=== PATIENT | male | born 1950 | race Caucasian/White ===

== ENCOUNTER → 2019-11-07 11:50 | Outpatient (BNVA) | payer MEDICARE, OTHER, SELFPAY | PROVIDERS: Family Provider Family Medicine; PCP Family Medicine; Visit Provider Family Medicine | DX: E11.9 Type 2 diabetes mellitus without complications (principal); Z79.4 Long term (current) use of insulin; Z12.5 Encounter for screening for malignant neoplasm of prostate | CPT/HCPCS: 80053; 80061; 83036; 85025; G0103 ==

== ENCOUNTER → 2020-01-28 12:06 | Outpatient (BNVA) | payer MEDICARE, OTHER, SELFPAY | PROVIDERS: Family Provider Family Medicine; PCP Family Medicine; Visit Provider Internal Medicine | DX: N18.3 Chronic kidney disease, stage 3 (moderate) (principal) | CPT/HCPCS: 80069; 82044; 82310; 83970; 85025 ==

== ENCOUNTER → 2020-02-11 12:53 | Outpatient (BNVA) | payer MEDICARE, OTHER, SELFPAY | PROVIDERS: Family Provider Family Medicine; PCP Family Medicine; Visit Provider Nurse Practitioner Family | DX: E13.9 Other specified diabetes mellitus without complications (principal) | CPT/HCPCS: 80048; 83036 ==

== ENCOUNTER → 2020-06-29 08:22 | Outpatient (BNVA) | payer MEDICARE, OTHER, SELFPAY | PROVIDERS: Family Provider Family Medicine; PCP Family Medicine; Visit Provider Family Medicine | DX: N18.30 Chronic kidney disease, stage 3 unspecified (principal); E13.9 Other specified diabetes mellitus without complications; E78.5 Hyperlipidemia, unspecified | CPT/HCPCS: 80053; 80061; 82043; 83036; 85025 ==

== ENCOUNTER → 2020-12-30 10:25 | Outpatient (BNVA) | payer MEDICARE, OTHER, SELFPAY | PROVIDERS: Family Provider Family Medicine; PCP Family Medicine; Visit Provider Internal Medicine Nephrology | DX: I12.9 Hypertensive chronic kidney disease with stage 1 through stage 4 chronic kidney disease, or unspecified chronic kidney disease (principal); E78.2 Mixed hyperlipidemia; N18.30 Chronic kidney disease, stage 3 unspecified; E11.22 Type 2 diabetes mellitus with diabetic chronic kidney disease | CPT/HCPCS: 80053; 80061; 82043; 82310; 83970; 84100; 84443; 85025; G0103 ==

== ENCOUNTER → 2021-04-12 11:19 | Outpatient (BNVA) | payer MEDICARE, OTHER, SELFPAY | PROVIDERS: Family Provider Family Medicine; PCP Family Medicine; Visit Provider Family Medicine | DX: E11.65 Type 2 diabetes mellitus with hyperglycemia (principal); E78.2 Mixed hyperlipidemia; I12.9 Hypertensive chronic kidney disease with stage 1 through stage 4 chronic kidney disease, or unspecified chronic kidney disease; N18.30 Chronic kidney disease, stage 3 unspecified; E11.22 Type 2 diabetes mellitus with diabetic chronic kidney disease | CPT/HCPCS: 80053; 80061; 83036; 85025 ==

== ENCOUNTER → 2021-07-09 08:49 | Outpatient (BNVA) | payer MEDICARE, OTHER, SELFPAY | PROVIDERS: Family Provider Family Medicine; PCP Family Medicine; Visit Provider Family Medicine | DX: E11.65 Type 2 diabetes mellitus with hyperglycemia (principal); E78.2 Mixed hyperlipidemia; I25.10 Atherosclerotic heart disease of native coronary artery without angina pectoris; I12.9 Hypertensive chronic kidney disease with stage 1 through stage 4 chronic kidney disease, or unspecified chronic kidney disease; N18.30 Chronic kidney disease, stage 3 unspecified | CPT/HCPCS: 80053; 80061; 82043; 83036; 85025; G0103 ==

== ENCOUNTER → 2021-10-21 09:01 | Outpatient (BNVA) | payer MEDICARE, OTHER, SELFPAY | PROVIDERS: Family Provider Family Medicine; PCP Family Medicine; Visit Provider Family Medicine | DX: E11.65 Type 2 diabetes mellitus with hyperglycemia (principal); I10 Essential (primary) hypertension; E78.5 Hyperlipidemia, unspecified | CPT/HCPCS: 80053; 80061; 83036; 84443; 85025 ==

== ENCOUNTER → 2022-01-12 13:44 | Outpatient (BNVA) | payer MEDICARE, OTHER, SELFPAY | PROVIDERS: Family Provider Family Medicine; PCP Family Medicine; Visit Provider Internal Medicine | DX: I10 Essential (primary) hypertension (principal); E78.2 Mixed hyperlipidemia; E13.9 Other specified diabetes mellitus without complications; G47.33 Obstructive sleep apnea (adult) (pediatric); I25.10 Atherosclerotic heart disease of native coronary artery without angina pectoris; Z87.891 Personal history of nicotine dependence; Z79.82 Long term (current) use of aspirin; Z79.4 Long term (current) use of insulin | CPT/HCPCS: 99213 ==

== ENCOUNTER → 2022-01-21 09:19 | Outpatient (BNVA) | payer MEDICARE, OTHER, SELFPAY | PROVIDERS: Family Provider Family Medicine; PCP Family Medicine; Visit Provider Family Medicine | DX: E11.65 Type 2 diabetes mellitus with hyperglycemia (principal); I10 Essential (primary) hypertension; E78.5 Hyperlipidemia, unspecified | CPT/HCPCS: 80053; 80061; 83036; 85025 ==

== ENCOUNTER → 2022-04-29 12:21 | Outpatient (BNVA) | payer MEDICARE, OTHER, SELFPAY | PROVIDERS: Family Provider Family Medicine; PCP Family Medicine; Visit Provider Family Medicine | DX: E13.9 Other specified diabetes mellitus without complications (principal); E78.5 Hyperlipidemia, unspecified | CPT/HCPCS: 80053; 80061; 82043; 83036; 85025 ==

== ENCOUNTER → 2022-07-13 14:42 | Outpatient (BNVA) | payer MEDICARE, OTHER, SELFPAY | PROVIDERS: Family Provider Family Medicine; PCP Family Medicine; Visit Provider Internal Medicine | DX: I12.9 Hypertensive chronic kidney disease with stage 1 through stage 4 chronic kidney disease, or unspecified chronic kidney disease (principal); E13.22 Other specified diabetes mellitus with diabetic chronic kidney disease; N18.30 Chronic kidney disease, stage 3 unspecified; Z87.891 Personal history of nicotine dependence; Z79.4 Long term (current) use of insulin; E78.2 Mixed hyperlipidemia; G47.33 Obstructive sleep apnea (adult) (pediatric); I25.10 Atherosclerotic heart disease of native coronary artery without angina pectoris; R06.02 Shortness of breath | CPT/HCPCS: 99213; 99214 ==

== ENCOUNTER → 2022-07-29 09:29 | Outpatient (BNVA) | payer MEDICARE, OTHER, SELFPAY | PROVIDERS: Family Provider Family Medicine; PCP Family Medicine; Visit Provider Family Medicine | DX: I10 Essential (primary) hypertension (principal); E11.65 Type 2 diabetes mellitus with hyperglycemia; E78.5 Hyperlipidemia, unspecified; Z12.5 Encounter for screening for malignant neoplasm of prostate | CPT/HCPCS: 80053; 80061; 83036; 85025; G0103 ==

== ENCOUNTER 2022-08-30 13:26 | Outpatient (CLI) | payer MEDICARE, OTHER, SELFPAY ==
--- NOTE | 2022-08-30 13:45 | USCV_ITS ---
Binu Mccoy Age: 71 Gender: M : 1950 Exam Date: 08/30/2022 13:53 Ordering Phys: Davide Grullon M.D ([email or web address]) Technologist: Jean Mckeon [place]am Location[place] [facility] [place] Indication: SOB BP: 136 / 72 HR: 61 Rhythm: Sinus Technical Quality: Adequate MEASUREMENTS (Male / Female) Normal Values 2D ECHO LV Diastolic Diameter PLAX 3.7 cm 4.2 - 5.9 / 3.9 - 5.3 cm LV Systolic Diameter PLAX 2.3 cm IVS Diastolic Thickness 1.1 cm 0.6 - 1.0 / 0.6 - 0.9 cm IVS Systolic Thickness 1.1 cm LVPW Diastolic Thickness 1.1 cm 0.6 - 1.0 / 0.6 - 0.9 cm LVPW Systolic Thickness 1.9 cm LVOT Diameter 2.0 cm LV Ejection Fraction 2D Teich 69.3 % LV Ejection Fraction MOD 2C 71.6 % LV Ejection Fraction 2C AL 73.7 % LA Diameter 3.4 cm LA Width 4.2 cm LA Height 5.0 cm RA Width 4.8 cm RA Height 4.6 cm Aorta at Sinotubular Diameter 2.5 cm IVC Diameter 1.9 cm M-MODE Aortic Annulus Diameter 2.9 cm LA Ao Ratio MM 1.2 MV E Point Septal Separation 0.6 cm DOPPLER AV Peak Velocity 172.0 cm/s LVOT Peak Velocity 103.0 cm/s AV Area Cont Eq vti 1.6 cm squared AV Area Cont Eq pk 1.9 cm squared MV Peak Velocity 95.0 cm/s MV Area PHT 3.3 cm squared Mitral E to A Ratio 0.6 MV E' Velocity 26.5 cm/s Mitral E to MV E' Ratio 7.3 Mitral E to LV E' Lateral Ratio 7.8 Mitral E to LV E' Septal Ratio 6.9 TR Peak Velocity 229.0 cm/s TR Peak Gradient 21.0 mmHg TR Mean Velocity 173.9 cm/s TR Mean Gradient 12.8 mmHg TR Velocity Time Integral 53.4 cm Right Atrial Pressure 3.0 mmHg Pulmonary Artery Systolic Pressu 24.0 mmHg PV Peak Velocity 136.3 cm/s RV Acceleration Time 0.1 s RV Ejection Time 0.3 s RV AcT/ET 0.3 FINDINGS Left Ventricle Left ventricle is normal in size. LV systolic function is normal with EF of 55 to 60%. No regional wall motion abnormalities are seen. Grade 1 diastolic dysfunction Right Ventricle Normal in size and function Right Atrium Normal in size Left Atrium Normal in size Mitral Valve Thickened mitral valve. Mild mitral regurgitation. Aortic Valve Aortic valve is thickened. Trace aortic regurgitation. Tricuspid Valve Mild tricuspid regurgitation. Pulmonary artery systolic pressure is normal Pulmonic Valve Not well-visualized. Mild pulmonic regurgitation. Pericardium Normal Aorta Normal in size IVC Appears to be normal CONCLUSIONS LV systolic function is nromal with EF of 55-60% Grade 1 diastolic dysfunction Mild mitral regurgitation Trace aortic regurgitation Mild tricuspid regurgitation Mild pulmonic regugitation No comparison studies are available Davide Grullon MD (Electronically Signed) Final Date: 13 September 2022 17:32 S
== END 2022-08-30 13:27 | disposition home or self-care (01) ==
LOC: RAD 13:26
PROVIDERS: PCP Family Medicine; Visit Provider Internal Medicine
DX: I08.3 Combined rheumatic disorders of mitral, aortic and tricuspid valves (principal); R06.02 Shortness of breath
CPT/HCPCS: 93306

== ENCOUNTER → 2022-10-28 10:10 | Outpatient (BNVA) | payer MEDICARE, OTHER, SELFPAY | PROVIDERS: PCP Family Medicine; Visit Provider Family Medicine | DX: E13.9 Other specified diabetes mellitus without complications (principal); E78.5 Hyperlipidemia, unspecified; I10 Essential (primary) hypertension; I25.10 Atherosclerotic heart disease of native coronary artery without angina pectoris; E11.65 Type 2 diabetes mellitus with hyperglycemia | CPT/HCPCS: 80053; 80061; 83036; 83721; 84443; 85025 ==

== ENCOUNTER 2022-12-14 23:18 | Inpatient (IN) | payer MEDICARE, OTHER, SELFPAY ==
--- NOTE | 2022-12-14 23:21 | XRR_ITS ---
PROCEDURE INFORMATION: Exam: XR Chest Exam date and time: 12/14/2022 11:53 PM Age: 72 years old Clinical indication: Pain; Right-sided; Additional info: Cp TECHNIQUE: Imaging protocol: Radiologic exam of the chest. Views: 1 view. COMPARISON: No relevant prior studies available. FINDINGS: Lungs: Low lung volumes. Lung base atelectasis or scarring. No consolidation. Pleural spaces: Unremarkable. No pleural effusion. No pneumothorax. Heart/Mediastinum: Unremarkable. No cardiomegaly. Vasculature: Advanced diffuse vascular calcification noted. Bones/joints: Unremarkable. XR/XR chest 1V portable [id number] IMPRESSION: No acute finding. Chronic findings above.
--- NOTE | 2022-12-14 23:21 | ECG_ITS ---
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 Measurements Intervals [place] Rate: 62 P: 39 NH: 219 QRS: -9 QRSD: 81 T: 48 QT: 358 QTc: 365 Interpretive Statements SINUS RHYTHM WITH FIRST DEGREE AV BLOCK INDETERMINATE AXIS ANTERIOR MYOCARDIAL INFARCTION , OF INDETERMINATE AGE [40+ ms Q WAVE AND/OR ST/T ABNORMALITY IN V3/V4] INFERIOR MYOCARDIAL INFARCTION , PROBABLY OLD [40+ ms Q WAVE AND/OR ST/T ABNORMALITY IN II/aVF] No previous ECG available for comparison Electronically Signed On 12-15-2022 7:40:30 CDT by Davide Grullon M.D. [id number]
[2022-12-14 23:25] VITALS: BP 143/79; PULSE 67; RESP 18; TEMP 36.7; O2SAT 97
[2022-12-14 23:39] VITALS: BP 143/79; PULSE 62; RESP 27; O2SAT 95
--- NOTE | 2022-12-14 23:46 | W.ED.CHESTPA ---
HPI - Chest Pain General: Chief Complaint: Chest Pain Stated Complaint: cp,fever Time Seen by Provider: 12/14/22 23:22 Source: patient Mode of arrival: ambulatory Limitations: no limitations History of Present Illness: 72-year-old male states been having right-sided chest pain since 1 that is worsening states pain is very sharp in nature he states it is much worse with deep breaths and and with palpation. He rates his pain a 7 out of 10 currently he denies any vomiting or diarrhea he has had some shortness of breath. Associated symptoms: Deny abdominal pain, dyspnea, fever(s), nausea or vomiting Review of Systems Const: Denies: fever(s), chills, body aches or change in appetite Eyes: Denies: blurry vision or eye discomfort ENMT: Denies: throat pain or dental pain Card: Reports: chest pain Resp: Denies: dyspnea GI: Denies: abdominal pain, nausea, vomiting or diarrhea : Denies: dysuria Musc: Denies: neck pain or back pain Skin/Breast: Denies: rash Neuro: Denies: headache(s) Psych: Denies: depression Yoseph/Lymph: Denies: easy bruising All/Imm: Denies: urticaria PFSH ED PFSH: Medical History Acquired sensorineural hearing loss Arteriosclerotic heart disease (ASHD) 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 Chronic kidney disease, stage 3 (moderate) follows with nephrology 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, managed as type 1 Diabetes mellitus type II, uncontrolled Enrolled in chronic care management Gastric polyp Hemangioma of liver Hyperlipidemia, unspecified IBS (irritable bowel syndrome) Inflammatory arthritis Lichen sclerosus Neoplasm of uncertain behavior of skin Neuropathy Obstructive sleep apnea Bi-Pap 06/29 Osteoarthritis of both knees Rosacea Seborrheic dermatitis of scalp Solitary pulmonary nodule Surgical History Hx of angioplasty stents 1996 stents 2010 Hx of circumcision (~2006) Hx of vasectomy Family History Father , age 49; [place] CAD (coronary artery disease) Mother , age 73 Diabetes Aneurysm brain Brother Diabetes CAD (coronary artery disease) Sister Diabetes CAD (coronary artery disease) Social History Smoking and tobacco status: former smoker Second hand smoke exposure: No Alcohol intake: never Caregiver/support person: Yes (spouse) Lives independently: Yes Household members: spouse Housing: House Marital status: Number of children: 1 service: No Current occupational status: retired Current occupation: [employer] Current gender identity: Male Grecia/Orthodox: [employer] Special grecia needs: No Agree to transfusion: Yes Physical Exam Const: COMMON NORMALS: no acute distress, patient oriented x3 and healthy appearing HENMT: COMMON NORMALS: normocephalic and atraumatic HEAD & SCALP: normocephalic and atraumatic Eye: COMMON NORMALS: Equal, round and reactive pupils present and EOMs intact bilaterally PUPIL: Yes Equal, round and reactive pupils present Neck/C-Spine: COMMON NORMALS: full ROM and supple Chest: COMMONS NORMALS: normal inspection of the chest OTHER: point tender over right chest reproduces pain Resp: COMMON NORMALS: normal respiratory effort, No retractions, No use of accessory muscles and clear to auscultation bilaterally AUSCULTATION: clear to auscultation bilaterally Cardio: COMMON NORMALS: regular rate, regular rhythm and No murmurs present (Cardio) RATE: regular rate RHYTHM: regular rhythm GI: COMMON NORMALS: Normal to inspection, nondistended, normoactive bowel sounds present, Soft to palpation, non-tender and no masses PALPATION: Yes Soft to palpation Extremity: COMMON NORMALS: normal to inspection and full ROM Neuro: COMMON NORMALS: patient oriented x3, moves all extremities and no focal motor deficits Psych: COMMON NORMALS: mental status grossly normal, Normal thought process present and cooperative THOUGHT PROCESS: Normal thought process present Skin: COMMON NORMALS: no rashes or lesions noted and no wounds GENERAL SKIN EXAM: no rashes or lesions noted Course Vital Signs: Vital signs: Vital Signs Temperature 98.0 F 12/14/22 23:25 Pulse Rate 62 12/15/22 02:00 Respiratory Rate 29 H 12/15/22 02:00 Blood Pressure 157/77 12/15/22 02:00 Pulse Oximetry 94 12/15/22 02:00 Oxygen Delivery Me thod 12/14/22 23:25 MDM - Chest Pain Medical Decision Making Patient presents here with chest pain likely caused by pulmonary embolism he has no signs of heart strain his Trope is normal he still continues to have some pains here mainly right sided spoke to hospitalist will admit for the PE. Lab Data 12/14/22 23:48 12/14/22 23:48 Radiology Impressions Chest X-Ray 12/15/22 00:00 IMPRESSION: No acute finding. Chronic findings above. Chest CTA 12/15/22 00:44 IMPRESSION: 1. At least mild burden fznjh-cbhdjig-karh-left lower lobe PE. No CT evidence of RV strain. 2. Mild areas of bilateral mid to lower lung atelectasis or scarring. No consolidation noted. Lung volumes are quite low. 3. Other chronic findings above. Likely reactive bilateral hilar and mediastinal nodes. These, and the lung opacities, may be reassessed in 1 year. 4. Call to provider has been initiated. ADDENDUM: 12/15/22 0225 THIS REPORT CONTAINS FINDINGS THAT MAY BE CRITICAL TO PATIENT CARE. The findings were verbally communicated via telephone conference at 2:23 AM CDT on 12/15/2022 with NANNETTE EVANS. The findings were acknowledged and understood. Laboratory Results WBC 7.5 10^3/uL (4.0-10.0) 12/14/22 23:48 RBC 5.39 10^6/uL (4.1-5.3) H 12/14/22 23:48 Hgb 15.5 g/dL (11.7-16.6) 12/14/22 23:48 Hct 47.6 % (42.0-52.0) 12/14/22 23:48 MCV 88.3 fl (80-94) 12/14/22 23:48 MCH 28.8 pg (28.0-34.0) 12/14/22 23:48 MCHC 32.6 g/dL (30.0-36.0) 12/14/22 23:48 RDW 14.2 % (12.1-15.1) 12/14/22 23:48 Plt Count 177 10^3/cmm (130-400) 12/14/22 23:48 MPV 10.3 fL (7.4-10.4) 12/14/22 23:48 Neut % (Auto) 72.1 % 12/14/22 23:48 Lymph % (Auto) 13.9 % 12/14/22 23:48 Miner % (Auto) 11.2 % 12/14/22 23:48 Eos % (Auto) 1.9 % 12/14/22 23:48 Baso % (Auto) 0.5 % 12/14/22 23:48 Neut # (Auto) 5.43 10^3/uL (1.8-7.7) 12/14/22 23:48 Lymph # (Auto) 1.1 10^3/uL (0.8-4.8) 12/14/22 23:48 Miner # (Auto) 0.8 10^3/uL (0.2-0.9) 12/14/22 23:48 Eos # (Auto) 0.1 10^3/uL (0.0-0.8) 12/14/22 23:48 Baso # (Auto) 0.0 10^3/uL (0.0-0.1) 12/14/22 23:48 Nucleated RBC % (auto) 0 % 12/14/22 23:48 Nucleated RBCs # 0.0 /100WBC 12/14/22 23:48 PT 12.70 SECONDS (12.1-14.9) 12/14/22 23:48 INR 0.93 (0.8-1.2) 12/14/22 23:48 D-Dimer 2.00 ug/mIFEU (0-0.59) H 12/14/22 23:48 Sodium 144 mmol/L (136-145) 12/14/22 23:48 Potassium 4.1 mmol/L (3.5-5.1) 12/14/22 23:48 Chloride 107 mmol/L (98-107) 12/14/22 23:48 Carbon Dioxide 23 mmol/L (22-29) 12/14/22 23:48 Anion Gap 18.1 (5-19) 12/14/22 23:48 BUN 27 mg/dL (8-23) H 12/14/22 23:48 Creatinine 1.6 mg/dL (0.7-1.2) H 12/14/22 23:48 GFR Calculation Not Reportable 12/14/22 23:48 Glucose 128 mg/dL (65-115) H 12/14/22 23:48 Calculated Osmolality 305 mOsm/kg (285-295) H 12/14/22 23:48 Calcium 9.6 mg/dL (8.5-10.5) 12/14/22 23:48 Total Bilirubin 0.5 mg/dL (0.15-1.2) 12/14/22 23:48 AST 21 U/L (0-40) 12/14/22 23:48 ALT 32 U/L (0-41) 12/14/22 23:48 Alkaline Phosphatase 64 U/L (40-130) 12/14/22 23:48 Troponin T Baseline 22 ng/L (0-15) H 12/14/22 23:48 Troponin T 120 Minute 17.95 ng/L (0-15) H 12/15/22 01:21 Delta Troponin T -4.05 ABS# (0-10) L 12/15/22 01:21 Total Protein 7.9 g/dL (6.6-8.7) 12/14/22 23:48 Albumin 4.5 g/dL (3.5-5.2) 12/14/22 23:48 Globulin 3.4 g/dL (1.3-4.6) 12/14/22 23:48 Lipase 33 U/L (13-60) 12/14/22 23:48 EKG Data EKG 1: I personally reviewed and interpreted this EKG as follows: EKG interpretation date: 12/14/22 EKG interpretation time: 23:35 Interpretation: nsr hr [address] elevation qrs 94 qtc 391 EKG 2: I personally reviewed and interpreted this EKG as follows: EKG interpretation date: 12/15/22 EKG interpretation time: 01:20 Interpretation: sinu buffy hr [address] or t wave abnormalties qrs 90 qtc 389 Discharge Plan Discharge Patient Disposition: Admitted As Inpatient Admit Provider: Raymond Knox Clinical Impression: Pulmonary embolism Condition: Stable Coding Level of Care Code ED Snow Remover for Oli Ernst
[2022-12-14] MEDS: ondansetron 2 mg/ML SDV 2 mL 4 MG IVP (23:50)
[2022-12-14 23:51] VITALS: RESP 20
[2022-12-14] MEDS: morphine 4 mg/mL SDV 1 mL IVP (23:51)
[2022-12-15] VITALS (15 sets, daily range): BP systolic 100–157; BP diastolic 62–77; PULSE 55–116; RESP 13–29; TEMP 36.6–36.9; O2SAT 90–95; BMI 28.3
--- NOTE | 2022-12-15 | XRR_ITS ---
PROCEDURE INFORMATION: Exam: XR Chest Exam date and time: 12/15/2022 12:29 AM Age: 72 years old Clinical indication: Chest pressure; Prior surgery; Surgery type: Coronary stent; Patient HX: C/O chest pain. Fever. ; Additional info: Repeat due to angulation TECHNIQUE: Imaging protocol: Radiologic exam of the chest. Views: 1 view. COMPARISON: CR (CHEST, ) 12/14/2022 11:53 PM FINDINGS: Lungs: Low lung volumes, but this is mildly improved. Lung base atelectasis or scarring. No consolidation. Pleural spaces: Unremarkable. No pleural effusion. No pneumothorax. Heart/Mediastinum: Unremarkable. No cardiomegaly. Vasculature: Advanced diffuse vascular calcification noted. Bones/joints: Unremarkable. XR/XR chest 1V portable [id number] IMPRESSION: No acute finding. Chronic findings above.
[2022-12-15 00:02] LABS: Basophils % 0.5 %; Eosinophils # 0.1 10^3/uL (0.0-0.8); Eosinophils % 1.9 %; Hematocrit 47.6 % (42.0-52.0); Hemoglobin 15.5 g/dL (11.7-16.6); Lymphocytes # 1.1 10^3/uL (0.8-4.8); Lymphocytes % 13.9 %; Mean Corpuscular HGB Conc 32.6 g/dL (30.0-36.0); Mean Corpuscular Hemoglobin 28.8 pg (28.0-34.0); Mean Corpuscular Volume 88.3 fl (80-94); Mean Platelet Volume 10.3 fL (7.4-10.4); Monocytes # 0.8 10^3/uL (0.2-0.9); Monocytes % 11.2 %; Neutrophils # 5.43 10^3/uL (1.8-7.7); Neutrophils % 72.1 %; Nucleated Red Blood Cells % 0 %; Platelet Count 177 10^3/cmm (130-400); Red Blood Count 5.39 10^6/uL (4.1-5.3); Red Cell Distribution Width 14.2 % (12.1-15.1); White Blood Count 7.5 10^3/uL (4.0-10.0)
[2022-12-15 00:21] LABS: INR 0.93 (0.8-1.2)
[2022-12-15 00:27] LABS: Troponin(5th) Baseline 22 ng/L (0-15)
[2022-12-15 00:28] LABS: Alanine Aminotransferase 32 U/L (0-41); Albumin Level 4.5 g/dL (3.5-5.2); Alkaline Phosphatase 64 U/L (40-130); Anion Gap 18.1 (5-19); Aspartate Amino Transferase 21 U/L (0-40); Blood Urea Nitrogen 27 mg/dL (8-23); Calcium 9.6 mg/dL (8.5-10.5); Carbon Dioxide 23 mmol/L (22-29); Chloride 107 mmol/L (98-107); Globulin 3.4 g/dL (1.3-4.6); Glucose 128 mg/dL (65-115); Lipase 33 U/L (13-60); Osmolality Calculated 305 mOsm/kg (285-295); Potassium 4.1 mmol/L (3.5-5.1); Sodium 144 mmol/L (136-145); Total Bilirubin 0.5 mg/dL (0.15-1.2); Total Protein 7.9 g/dL (6.6-8.7)
--- NOTE | 2022-12-15 00:44 | CTR_ITS ---
PROCEDURE INFORMATION: Exam: CTA Chest With Contrast Exam date and time: 12/15/2022 1:48 AM Age: 72 years old Clinical indication: Pain and abnormal findings; Abnormal diagnostic tests; Elevated d-dimer; Right-sided; Prior surgery; Surgery type: Coronary stent; Patient HX: RT chest wall pain with elevated d dimer. ; Additional info: Cp TECHNIQUE: Imaging protocol: Computed tomographic angiography of the chest with contrast. 3D rendering (Not supervised by radiologist): MIP and/or 3D reconstructed images were created by the technologist. Radiation optimization: All CT scans at this facility use at least one of these dose optimization techniques: automated exposure control; mA and/or kV adjustment per patient size (includes targeted exams where dose is matched to clinical indication); or iterative reconstruction. Contrast material: OMNI 350; Contrast volume: 65 ml; Contrast route: INTRAVENOUS (IV); REPORTING DATA: Count of CT and Cardiac NM exams in prior 12 months: This patient has received 0 known CTs and 0 known cardiac nuclear medicine studies in the 12 months prior to the current study. COMPARISON: CR (CHEST, ) 12/15/2022 12:29 AM RADIATION DOSE METRICS: Total DLP (mGy-cm): 371.61 FINDINGS: Pulmonary arteries: Mild burden RML and RLL lobar and segmental PE, generally nonocclusive. Minimal LLL subsegmental PE. Aorta: Unremarkable. No aortic aneurysm. No aortic dissection. Lungs: Lung volumes are low. A few minute calcified lung nodules are seen incidentally. Kvbd-zg-llgpwjbx areas of bilateral mid to lower lung atelectasis or scarring. No consolidation. Pleural spaces: No pneumothorax. No pleural effusion noted. Heart: The heart is mildly enlarged. No pericardial effusion is noted. Heart RV/LV ratio: The RV/LV ratio is 0.75. Lymph nodes: A few likely reactive bilateral hilar and mediastinal nodes are visualized. No bulky or necrotic lymphadenopathy. Diaphragm: Tiny hiatal hernia. Liver: Partially assessed steatotic liver. Bones/joints: Kvxs-ik-shyqnfnm spine DJD. Soft tissues: Unremarkable. Other findings: Advanced diffuse vascular calcification noted. CT/CT angio chest PE protcl [id number] IMPRESSION: 1. At least mild burden hgvqr-hiwirlv-ianc-left lower lobe PE. No CT evidence of RV strain. 2. Mild areas of bilateral mid to lower lung atelectasis or scarring. No consolidation noted. Lung volumes are quite low. 3. Other chronic findings above. Likely reactive bilateral hilar and mediastinal nodes. These, and the lung opacities, may be reassessed in 1 year. 4. Call to provider has been initiated.
--- NOTE | 2022-12-15 01:20 | ECG_ITS ---
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 Measurements Intervals [place] Rate: 59 P: 57 NM: 206 QRS: 2 QRSD: 90 T: 68 QT: 390 QTc: 388 Interpretive Statements SINUS BRADYCARDIA INDETERMINATE AXIS INFERIOR MYOCARDIAL INFARCTION , OF INDETERMINATE AGE [40+ ms Q WAVE AND/OR ST/T ABNORMALITY IN II/aVF] ANTEROSEPTAL MYOCARDIAL INFARCTION , OF INDETERMINATE AGE [40+ ms Q WAVE IN V1-V4] Compared to ECG 12/14/2022 23:29:55 Sinus rhythm no longer present First degree AV block no longer present Myocardial infarct finding still present Electronically Signed On 12-15-2022 22:56:03 CDT by Dorita Purcell M.D. [id number]
[2022-12-15] MEDS: HYDROmorphone 1 mg/mL INJ 1 mL 0.5 MG IVP ×3 (01:23→22:41)
[2022-12-15 01:49] LABS: Troponin 5 2HR 17.95 ng/L (0-15)
[2022-12-15 01:59] LABS: Troponin 5 2HR Delta -4.05 ABS# (0-10)
[2022-12-15] MEDS: iohexol 350 mg/mL 500 mL Btl (per mL) IV (02:02)
[2022-12-15] MEDS: enoxaparin 100 mg/mL Syringe 90 MG SUBCUT ×2 (02:33→17:13)
[2022-12-15] MEDS: ketorolac 30 mg/mL INJ 15 MG IVP (02:33)
--- NOTE | 2022-12-15 04:16 | USCV_ITS ---
Binu Mccoy Age: 72 Gender: M : 1950 Exam Date: 12/15/2022 05:44 Ordering Phys: Raymond Knox MD Technologist: HOMERO Exam Location: [facility] [place] Indication: PE, ASSESS FOR RV STRAIN BP: 119 / 68 HR: 56 Rhythm: Sinus Technical Quality: Adequate MEASUREMENTS (Male / Female) Normal Values 2D ECHO LVOT Diameter 2.0 cm LV Ejection Fraction MOD 2C 61.0 % LV Ejection Fraction 2C AL 60.0 % LA Diameter 3.2 cm LA Width 3.2 cm LA Height 5.2 cm RA Width 3.9 cm RA Height 4.8 cm Aorta at Sinotubular Diameter 2.4 cm IVC Diameter 2.1 cm M-MODE Aortic Annulus Diameter 3.0 cm LA Ao Ratio MM 1.0 MV E Point Septal Separation 0.4 cm DOPPLER Right Atrial Pressure 3.0 mmHg FINDINGS Left Ventricle Normal left ventricular size and systolic function, EF 63 %. No regional wall motion abnormalities. Right Ventricle The right ventricle is normal in size and function. Right Atrium The right atrium is normal in size. Left Atrium The left atrium is normal in size. Mitral Valve No gross abnormalities noted . Aortic Valve Thickened aortic valve. Tricuspid Valve No gross abnormalities noted Pulmonic Valve No gross abnormalities noted look triaditis ACS to confirm lisinopril pressure okay Pericardium No pericardial effusion. Aorta Normal aortic annulus size. IVC Normal inferior vena cava. CONCLUSIONS Normal left ventricular size and systolic function, EF 63 %. No regional wall motion abnormalities. Thickened aortic valve. Normal chamber sizes There is no pericardial effusion. There are no intracardiac masses. Compared to the study from 08/30/2022, there may not be a significant change in the 2D findings Dr Dorita Purcell MD [facility] (Electronically Signed) Final Date: 15 December 2022 17:18 S
--- NOTE | 2022-12-15 04:19 | P.HP_ITS ---
Providers/Chief Complaint Admitting Physician: Raymond Knox Primary Care Provider: Ofe Coates MD Chief Complaint: cp,fever History of Present Illness Pleasant 72-year-old gentleman with a history of cardiovascular disease, PAD, CKD, MENA, other comorbidities, presented with right lower chest pain episodes and spasms, especially with deep breaths or cough, has not been coughing very much. No phlegm production. No hemoptysis. No lower extremity edema. Contact me please Myopridin right greater than left lower lobe PE. Mild areas of bilateral mid to lower lung atelectasis or scarring. No consolidation. Lung volumes are quite low. Bilateral hilar and mediastinal lymph nodes and lung opacities with recommendation for reassessment in 1 year. 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 No prior history of VTE. Review of Systems Const: Denies: fever(s), chills, body aches or malaise ENMT: Denies: throat pain or ear or mastoid pain Card: Reports: chest pain; Denies: edema, pre-syncope or dyspnea on exertion Resp: Denies: dyspnea, productive cough, change in phlegm color or hemoptysis GI: Denies: abdominal pain, nausea, vomiting, diarrhea, constipation, hematochezia or melena : Denies: difficulty urinating Skin/Breast: Denies: rash or new lesions Neuro: Denies: headache(s), dizziness or confusion Medications/Allergies Home Medications Medication Instructions Recorded Confirmed Last Taken Type aspirin 81 mg tablet,delayed 81 mg PO DAILY 09/26/19 12/15/22 Unknown History release lancets 28 gauge (Easy Touch #25 ea 09/26/19 11/01/22 Unknown History Safety Lancets) omega-3 fatty acids 1,000 mg 1,000 mg PO DAILY 09/26/19 12/15/22 Unknown History capsule (Fish Oil Concentrate) triamcinolone acetonide 55 mcg 2 spray intranasal DAILY 09/26/19 12/15/22 Unknown History nasal spray aerosol cholecalciferol (vitamin D3) 50 50 mcg PO DAILY 07/13/21 12/15/22 Unknown History mcg (2,000 unit) capsule salicylic acid 3 % shampoo 1 applic topical .3 times a week 02/01/22 11/01/22 Unknown Rx (Neutrogena T/Meño) #133 mL nitroglycerin 0.4 mg sublingual See Rx Instructions .Route 05/17/22 12/15/22 Unknown Rx tablet .COMPLEX #30 tabs insulin degludec 200 unit/mL (3 See Rx Instructions .Route 08/02/22 12/15/22 Unknown Rx mL) subcutaneous pen (Tresiba .COMPLEX #18 mL FlexTouch U-200 insulin) clopidogrel 75 mg tablet 75 mg PO DAILY #90 tabs 10/07/22 12/15/22 Unknown Rx metoprolol succinate 50 mg 50 mg PO DAILY #90 tabs 10/07/22 12/15/22 Unknown Rx tablet,extended release 24 hr pantoprazole 40 mg tablet,delayed 40 mg PO DAILY #90 tabs 10/07/22 12/15/22 Unknown Rx release empagliflozin 25 mg tablet 25 mg PO DAILY #30 tabs 11/01/22 12/15/22 Unknown Rx (Jardiance) B6 25 mg-L mefolate 3,500 mcg 1 cap PO DAILY 12/15/22 12/15/22 Unknown History DFE-mecobalamin 1 mg-ALA 300 mg capsule (Nufola) atorvastatin 40 mg tablet 40 mg PO BEDTIME 12/15/22 12/15/22 Unknown History fexofenadine 180 mg tablet 180 mg PO DAILY 12/15/22 12/15/22 Unknown History insulin aspart U-100 100 unit/mL 13 unit SUBCUT TIDWMEAL 12/15/22 12/15/22 Unknown History subcutaneous solution (Novolog U-100 Insulin aspart) Allergies Allergy/AdvReac Type Severity Reaction Status Date / Time metformin [From Sepumet] Allergy Mild nausea Verified 12/14/22 23:32 sitagliptin [From Sepumet] Allergy Mild nausea Verified 12/14/22 23:32 ciprofloxacin [From Cipro] Allergy Unknown Unknown Verified 12/14/22 23:32 Sulfa (Sulfonamide Allergy Unknown Unknown Verified 12/14/22 23:32 Antibiotics) sulfamethoxazole Allergy Unknown Unknown Verified 12/14/22 23:32 [From Mayra] trimethoprim [From Mayra] Allergy Unknown Unknown Verified 12/14/22 23:32 PFSH Acute PFSH: Medical History Acquired sensorineural hearing loss Arteriosclerotic heart disease (ASHD) 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 Chronic kidney disease, stage 3 (moderate) follows with nephrology 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, managed as type 1 Diabetes mellitus type II, uncontrolled Enrolled in chronic care management Gastric polyp Hemangioma of liver Hyperlipidemia, unspecified IBS (irritable bowel syndrome) Inflammatory arthritis Lichen sclerosus Neoplasm of uncertain behavior of skin Neuropathy Obstructive sleep apnea Bi-Pap 06/29 Osteoarthritis of both knees Rosacea Seborrheic dermatitis of scalp Solitary pulmonary nodule Surgical History Hx of angioplasty stents 1995 stents 2010 Hx of circumcision (~2006) Hx of vasectomy Family History Father , age 49; [place] CAD (coronary artery disease) Mother , age 73 Diabetes Aneurysm brain Brother Diabetes CAD (coronary artery disease) Sister Diabetes CAD (coronary artery disease) Social History Smoking and tobacco status: former smoker Second hand smoke exposure: No Alcohol intake: never Caregiver/support person: Yes (spouse) Lives independently: Yes Household members: spouse Housing: House Marital status: Number of children: 1 service: No Current occupational status: retired Current occupation: [employer] Current gender identity: Male Grecia/Hoahaoism: Hoahaoism of Rakesh Special grecia needs: No Agree to transfusion: Yes Vitals/I&O/Wt Last Vital Signs Temp 98.2 F 12/15/22 03:27 Pulse 60 12/15/22 04:05 Resp 19 H 12/15/22 03:27 BP 119/68 12/15/22 03:27 Pulse Ox 92 12/15/22 03:27 O2 Del Method 12/14/22 23:25 Weight last 48 hrs Weight 87.18 kg Weight 86.183 kg Physical Exam Narrative: Accompanied by his . Const: COMMON NORMALS: patient oriented x3 and alert GENERAL APPEARANCE: cooperative ORIENTATION/CONSCIOUSNESS: Yes awake HENMT: COMMON NORMALS: oropharynx normal Eye: OTHER: Blind in L eye Neck/C-Spine: COMMON NORMALS: no JVD Resp: COMMON NORMALS: normal respiratory effort and clear to auscultation bilaterally AUSCULTATION: clear to auscultation bilaterally Cardio: COMMON NORMALS: no JVD, regular rhythm, S1 normal heart sound present, S2 normal heart sound present and No murmurs present (Cardio) RHYTHM: regular rhythm HEART SOUNDS: S1 normal heart sound present and S2 normal heart sound present GI: COMMON NORMALS: Normal to inspection, nondistended, normoactive bowel sounds present, Soft to palpation and non-tender PALPATION: Yes Soft to palpation Extremity: COMMON NORMALS: no joint enlargement and no pedal edema Neuro: COMMON NORMALS: patient oriented x3 and moves all extremities SENSORIUM/ORIENTATION: Yes alert Skin: COMMON NORMALS: no rashes or lesions noted GENERAL SKIN EXAM: no rashes or lesions noted Data 12/14/22 23:48 12/14/22 23:48 A&P Assessment and plan (1) Pulmonary embolism: Noted elevated D-dimer, appreciate results of CT. Bilateral PE with at least mild burden bilateral PE. Quite bothersome pain. With other lung changes, possibly of lung infarction. Gets fatigued with exertion. Received therapeutic dose Lovenox. Continue while in hospital. Transition to oral anticoagulation at discharge. Will obtain limited TTE to assess for right heart strain. Monitor blood pressure, oxygenation. Consider home O2 eval prior to discharge. So far required IV medications for pain control including morphine, Dilaudid. We will add Dilaudid as needed for severe pain, for moderate pain we will see if can be controlled with [place]. 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 Please refer for further follow-up for work-up for hypercoagulable condition, follow-up to make sure he is up-to-date on health screenings. Discussed with ER physician. ER documentation reviewed. We discussed with him potential other symptoms, including dyspnea on exertion, hypoxia, monitoring for hypotension, discussed cough which may be quite bothersome, hemoptysis. He will let us know in case his symptoms change. (2) Opacity of lung on imaging study: Possibly atelectasis or scarring. Please refer for follow-up. Recommended reassessment imaging in 1 year. (3) Mediastinal lymphadenopathy: Please refer for follow-up. Recommended reassessment imaging in 1 year. Plan CAD PAD DM2: Continue long and short acting insulin, requesting Accu-Cheks and add sliding scale. CC diet. CKD: Appears stable MENA: We will request nightly NIPPV Attestations Medical Necessity Statement*: Place in observation for additional assessment management of bilateral PE, pain control, initiation of anticoagulation, assessment for right heart strain. Diagnoses Pulmonary embolism I26.99 Opacity of lung on imaging study R91.8 Mediastinal lymphadenopathy R59.0
--- NOTE | 2022-12-15 05:18 | ECG_ITS ---
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 Measurements Intervals [place] Rate: 56 P: 10 MA: 218 QRS: -7 QRSD: 99 T: 55 QT: 415 QTc: 402 Interpretive Statements SINUS BRADYCARDIA WITH FIRST DEGREE AV BLOCK LOW QRS VOLTAGE IN PRECORDIAL LEADS [QRS DEFLECTION < 1.0 mV IN CHEST LEADS] ANTERIOR MYOCARDIAL INFARCTION , OF INDETERMINATE AGE [40+ ms Q WAVE AND/OR ST/T ABNORMALITY IN V3/V4] INFERIOR MYOCARDIAL INFARCTION , PROBABLY OLD [40+ ms Q WAVE AND/OR ST/T ABNORMALITY IN II/aVF] Compared to ECG 12/15/2022 01:20:48 First degree AV block now present Low QRS voltage now present Indeterminate axis no longer present Myocardial infarct finding still present Electronically Signed On 12-16-2022 23:06:43 CDT by Dorita Purcell M.D. [email or web address]
[2022-12-15 06:33] LABS: Troponin 5 6HR 20.08 ng/L (0-15)
[2022-12-15 06:41] LABS: Troponin 5 6HR Delta -1.92 ng/L (0-12)
[2022-12-15 06:54] LABS: Glucose Point of Care 106 mg/dL (70-110)
[2022-12-15] MEDS: clopidogrel 75 mg Tablet PO (08:40)
[2022-12-15] MEDS: pantoprazole DR 40 mg Tablet PO (08:40)
[2022-12-15] MEDS: HYDROcodone-acetaminophen 5-325 mg Tablet 1 TAB PO ×4 (08:44→20:42)
--- NOTE | 2022-12-15 14:12 | USCV_ITS ---
Binu Mccoy Age: 72 Gender: M : 1950 Exam Date: 12/15/2022 15:32 Ordering Phys: Radha Shell MD Technologist: ALEXIS Exam Location: [facility] [place] Indication: RECENT PE. HISTORY: Pulmonary embolism. PROCEDURES: Venous duplex imaging was performed in bilateral lower extremities. The following venous structures were evaluated: common femoral vein, profunda vein, proximal portion of the greater saphenous vein, superficial femoral vein, and the popliteal vein. In addition, the posterior tibial and peroneal trunk were evaluated. Serial compression, augmentation maneuvers, and spectral Doppler flow evaluation were performed. FINDINGS: No evidence of DVT seen in any vessel visualized at this time. CONCLUSIONS No evidence of right lower extremity DVT. No evidence of left lower extremity DVT. Randy Sánchez MD (Electronically Signed) Final Date: 15 December 2022 17:35 S
[2022-12-15 16:26] LABS: Glucose Point of Care 105 mg/dL (70-110)
--- NOTE | 2022-12-15 17:18 | PM.MISC ---
Miscellaneous Note Purpose of Documentation: Overnight labs and H&P reviewed. Patient continues to be on full dose Lovenox. He does have right-sided chest pain, pleuritic type, made worse with deep inspiration. This is likely related to known PE. Continue pain management with opiates, add lidocaine patch and assess for response. May need to add fentanyl patch if pain continues to be uncontrolled. Check lower extremity Doppler for DVT
[2022-12-15] MEDS: metoprolol succinate ER (24 HR) 50 mg Tablet PO (17:52)
[2022-12-15] MEDS: atorvastatin 40 mg Tablet PO (20:42)
[2022-12-15 21:54] LABS: Glucose Point of Care 133 mg/dL (70-110)
[2022-12-16] VITALS (8 sets, daily range): BP systolic 123–177; BP diastolic 67–97; PULSE 66–88; RESP 16–23; TEMP 36.8–37.7; O2SAT 88–96
[2022-12-16] MEDS: HYDROcodone-acetaminophen 5-325 mg Tablet 1 TAB PO ×6 (00:26→22:25)
[2022-12-16 00:29] LABS: Glucose Point of Care 113 mg/dL (70-110)
[2022-12-16] MEDS: HYDROmorphone 1 mg/mL INJ 1 mL 0.5 MG IVP ×2 (03:09→07:29)
[2022-12-16] MEDS: enoxaparin 100 mg/mL Syringe 90 MG SUBCUT (03:40)
[2022-12-16 06:28] LABS: Basophils % 0.3 %; Eosinophils # 0.1 10^3/uL (0.0-0.8); Eosinophils % 0.9 %; Hematocrit 43.1 % (42.0-52.0); Hemoglobin 13.8 g/dL (11.7-16.6); Lymphocytes # 0.5 10^3/uL (0.8-4.8); Lymphocytes % 7.5 %; Mean Corpuscular Hemoglobin 28.8 pg (28.0-34.0); Mean Corpuscular Volume 89.8 fl (80-94); Mean Platelet Volume 10.3 fL (7.4-10.4); Monocytes # 0.6 10^3/uL (0.2-0.9); Monocytes % 9.5 %; Neutrophils # 5.41 10^3/uL (1.8-7.7); Neutrophils % 81.2 %; Nucleated Red Blood Cells % 0 %; Platelet Count 148 10^3/cmm (130-400); Red Cell Distribution Width 14.2 % (12.1-15.1); White Blood Count 6.7 10^3/uL (4.0-10.0)
[2022-12-16 06:33] LABS: Glucose Point of Care 110 mg/dL (70-110)
[2022-12-16 06:40] LABS: Anion Gap 14.4 (5-19); Blood Urea Nitrogen 21 mg/dL (8-23); Carbon Dioxide 24 mmol/L (22-29); Chloride 109 mmol/L (98-107); Glucose 111 mg/dL (65-115); Osmolality Calculated 300 mOsm/kg (285-295); Potassium 4.4 mmol/L (3.5-5.1); Sodium 143 mmol/L (136-145)
[2022-12-16] MEDS: pantoprazole DR 40 mg Tablet PO (09:29)
[2022-12-16] MEDS: clopidogrel 75 mg Tablet PO (09:31)
[2022-12-16] MEDS: fentaNYL 25 mcg Patch 1 PATCH TRANSDERMA (10:19)
[2022-12-16] MEDS: lidocaine 5% Patch 1 PATCH TOPICAL (10:28)
--- NOTE | 2022-12-16 10:33 | XR_ITS ---
WS: [id number] EXAMINATION: XR chest 1V portable [id number] REASON FOR EXAM: chest pain COMPARISON: 12/15/2022 ORDER DATE: 12/16/2022 10:36 AM TECHNIQUE: A single, portable frontal chest x-ray was obtained. FINDINGS: Lungs: Low lung volumes, but mildly improved. Lung base atelectasis or scarring. No consolidation. Pleural spaces: Unremarkable. No pleural effusion. No pneumothorax. Heart/Mediastinum: Unremarkable. No cardiomegaly. Vasculature: Advanced diffuse vascular calcification noted. Bones/joints: Unremarkable. XR/XR chest 1V portable [id number] IMPRESSION: No acute finding. Chronic findings above.
--- NOTE | 2022-12-16 10:34 | US_ITS ---
WS: [id number] ABDOMINAL ULTRASOUND LIMITED REASON FOR EXAM: RUQ pain, evalaute for cholecystitis COMPARISON: None available. ORDER DATE: 12/16/2022 2:20 PM TECHNIQUE: Grayscale and Doppler ultrasound examination of the abdomen. FINDINGS: Pancreas: Unremarkable as visualized. Pancreatic duct measuring 2.9 mm with normal distal tapering . Abdominal aorta and IVC: Unremarkable diameter 27 mm Liver: Liver measures 17.9 cm in length. Mild hepatomegaly no evidence of focal abnormality. Gallbladder: Gallbladder wall thickness measures 0.2 mm. The gallbladder demonstrates a vague fluid/f luid level which could indicate the presence of sludge. No discrete calculi. Right kidney: Right kidney measures 11.7 cm x 4.7 cm x 5.4 cm. Normal echotexture. There is normal vascular flow in the portal vein and right kidney. US/US liver [id number] IMPRESSION: Possible gallbladder sludge without acute gallbladder wall change.
[2022-12-16] MEDS: acetaminophen 1,000 MG/100 ML PIGGYBACK 400 MG IV (12:12)
[2022-12-16 12:30] LABS: Glucose Point of Care 187 mg/dL (70-110)
[2022-12-16] MEDS: heparin 5,000 unit/mL INJ 1 mL IV (14:59)
[2022-12-16] MEDS: heparin drip 25,000 UNIT/500 ML PREMIX 25 UNIT IV (15:01)
[2022-12-16 17:06] LABS: Glucose Point of Care 104 mg/dL (70-110)
[2022-12-16 17:06] LABS: Glucose Point of Care 177 mg/dL (70-110)
--- NOTE | 2022-12-16 17:31 | PC.NURSE ---
Patient 17:00 accucheck is 104
[2022-12-16] MEDS: metoprolol succinate ER (24 HR) 50 mg Tablet PO (18:03)
[2022-12-16] MEDS: atorvastatin 40 mg Tablet PO (21:06)
[2022-12-16] MEDS: cyclobenzaprine 10 mg Tablet 5 MG PO (21:08)
[2022-12-16 22:13] LABS: Partial Thromboplastin Time 96.4 SECONDS (23.9-36.7)
[2022-12-16 22:33] LABS: Glucose Point of Care 145 mg/dL (70-110)
--- NOTE | 2022-12-16 22:35 | PM.PN ---
Subjective Subjective: pain is poorly comtrolled today, overnight in significant discomfort, unable to sleep. has new 02 requirement 3lpm this mornign Vitals/I&O/Wt Last Vital Signs Temp 99.8 F H 12/16/22 20:42 Pulse 78 12/16/22 20:42 Resp 16 12/16/22 20:42 BP 129/75 12/16/22 20:42 Pulse Ox 90 12/16/22 20:42 O2 Del Method 12/16/22 20:42 12/16/22 12/16/22 12/16/22 06:59 14:59 22:59 Intake Total 480 / 680 360 / 360 285.417 / 645.417 Balance 480 / -370 360 / 360 285.417 / 645.417 Weight last 48 hrs Weight 87.18 kg Weight 86.183 kg Physical Exam Narrative: General: Uncomfortbale, wincing in pain HEENT: PERRLA, pupils bilaterally equal and reactive, pallors not present Chest: Normal vesicular breath sounds, no added sounds, equal good air entry bilaterally CVS: S1-S2 regular, no murmurs, no tachycardia, no gallops, no rubs Abdomen: Soft, nontender, no organomegaly, bowel sounds present Neuro: No focal deficits, no facial deformity, AO x3, power 5/5 in all limbs Data 12/16/22 06:08 12/16/22 06:08 A&P Assessment and plan (1) Pulmonary embolism: . Bilateral PE with at least mild burden bilateral PE. Quite bothersome pain. With other lung changes, possibly of lung infarction. TTE negative for right heart strain. Monitor blood pressure, oxygenation. Consider home O2 eval prior to discharge. LE duplex negative for PE poorly controlled pain : Add fentanyl patch, iv tylenol, flexeril and local lidocaine patch and monitor for improvement change lovenox to heparin drip inpatient admission, anticipate care to cross 2 midnight (2) Opacity of lung on imaging study: Possibly atelectasis or scarring. Please refer for follow-up. Recommended reassessment imaging in 1 year. (3) Mediastinal lymphadenopathy: Please refer for follow-up. Recommended reassessment imaging in 1 year. Plan CAD PAD DM2: Continue long and short acting insulin, requesting Accu-Cheks and add sliding scale. CC diet. CKD: Appears stable MENA: We will request nightly NIPPV Attestations Medical Necessity Statement*: heparin drp, pain control Coding Level of Care Code Acute Code for Chg Fwd Diagnoses Pulmonary embolism I26.99 Opacity of lung on imaging study R91.8 Mediastinal lymphadenopathy R59.0
[2022-12-17] VITALS (12 sets, daily range): BP systolic 112–127; BP diastolic 64–79; PULSE 61–87; RESP 14–18; TEMP 36.6–37.2; O2SAT 90–97
[2022-12-17] MEDS: HYDROcodone-acetaminophen 5-325 mg Tablet 1 TAB PO ×6 (02:14→23:21)
[2022-12-17] MEDS: cefTRIAXone 1,000 MG in sodium chloride 0.9% (plus) 50 ML 100 MG IV (02:16)
[2022-12-17 04:59] LABS: Basophils % 0.7 %; Eosinophils # 0.1 10^3/uL (0.0-0.8); Hematocrit 44.8 % (42.0-52.0); Lymphocytes # 1.3 10^3/uL (0.8-4.8); Lymphocytes % 24.1 %; Mean Corpuscular HGB Conc 31.3 g/dL (30.0-36.0); Mean Corpuscular Hemoglobin 28.6 pg (28.0-34.0); Mean Corpuscular Volume 91.4 fl (80-94); Mean Platelet Volume 10.5 fL (7.4-10.4); Monocytes # 0.7 10^3/uL (0.2-0.9); Monocytes % 13.2 %; Neutrophils # 3.28 10^3/uL (1.8-7.7); Neutrophils % 59.6 %; Nucleated Red Blood Cells % 0 %; Platelet Count 151 10^3/cmm (130-400); Red Cell Distribution Width 14.3 % (12.1-15.1); White Blood Count 5.5 10^3/uL (4.0-10.0)
[2022-12-17 05:15] LABS: Alanine Aminotransferase 20 U/L (0-41); Albumin Level 3.7 g/dL (3.5-5.2); Alkaline Phosphatase 56 U/L (40-130); Anion Gap 13.7 (5-19); Aspartate Amino Transferase 18 U/L (0-40); Blood Urea Nitrogen 21 mg/dL (8-23); Calcium 9.3 mg/dL (8.5-10.5); Carbon Dioxide 25 mmol/L (22-29); Chloride 104 mmol/L (98-107); Globulin 3.6 g/dL (1.3-4.6); Glucose 78 mg/dL (65-115); Osmolality Calculated 290 mOsm/kg (285-295); Potassium 3.7 mmol/L (3.5-5.1); Sodium 139 mmol/L (136-145); Total Bilirubin 0.7 mg/dL (0.15-1.2); Total Protein 7.3 g/dL (6.6-8.7)
[2022-12-17 05:16] LABS: Partial Thromboplastin Time 79.2 SECONDS (23.9-36.7)
[2022-12-17] MEDS: cyclobenzaprine 10 mg Tablet 5 MG PO (07:02)
[2022-12-17 07:10] LABS: Glucose Point of Care 62 mg/dL (70-110)
[2022-12-17] MEDS: lidocaine 5% Patch 1 PATCH TOPICAL ×2 (10:11→21:30)
[2022-12-17] MEDS: clopidogrel 75 mg Tablet PO (10:12)
[2022-12-17] MEDS: pantoprazole DR 40 mg Tablet PO (10:12)
[2022-12-17 11:53] LABS: Glucose Point of Care 134 mg/dL (70-110)
[2022-12-17] MEDS: heparin drip 25,000 UNIT/500 ML PREMIX 18 UNIT IV (12:33)
[2022-12-17 13:12] LABS: Partial Thromboplastin Time 56.1 SECONDS (23.9-36.7)
[2022-12-17 17:10] LABS: Glucose Point of Care 136 mg/dL (70-110)
--- NOTE | 2022-12-17 17:13 | PM.PN ---
Subjective Subjective: States that pain is overall well controlled compared to yesterday, however still having sharp pain on the right side of his chest. Fentanyl patch appears to be helping him. Underwent a home O2 evaluation today which did not qualify him for supplemental O2. Medications: Reviewed: Yes Vitals/I&O/Wt Last Vital Signs Temp 98.6 F 12/17/22 16:00 Pulse 85 12/17/22 16:00 Resp 16 12/17/22 16:00 BP 125/78 12/17/22 16:00 Pulse Ox 91 12/17/22 16:00 O2 Del Method 12/17/22 10:00 O2 Flow Rate 2 12/17/22 10:00 12/17/22 12/17/22 12/17/22 06:59 14:59 22:59 Intake Total 191.333 / 1236.750 846.9 / 846.9 Balance 191.333 / 1236.750 846.9 / 846.9 Physical Exam Narrative: General: Uncomfortbale, wincing in pain HEENT: PERRLA, pupils bilaterally equal and reactive, pallors not present Chest: Normal vesicular breath sounds, no added sounds, equal good air entry bilaterally CVS: S1-S2 regular, no murmurs, no tachycardia, no gallops, no rubs Abdomen: Soft, nontender, no organomegaly, bowel sounds present Neuro: No focal deficits, no facial deformity, AO x3, power 5/5 in all limbs Data 12/17/22 04:41 12/17/22 04:41 A&P Assessment and plan (1) Pulmonary embolism: Bilateral PE with at least mild burden bilateral PE. Quite bothersome pain. With other lung changes, possibly of lung infarction. TTE negative for right heart strain. Monitor blood pressure, oxygenation. Consider home O2 eval prior to discharge. LE duplex negative for PE poorly controlled pain no somewhat improved after adding fentanyl patch. Will increase fentanyl from 25 mics daily patch to 50 mics patch. Continue with lidocaine patch. Continue iv tylenol, flexeril and local lidocaine patch and monitor for improvement Discontinue heparin drip, changed to Eliquis 10 mg twice daily for the first 7 days, then reduce dose to 5 mg p.o. twice daily. Supplemental O2 to keep saturation greater than 92%. Underwent a home O2 eval in anticipation of upcoming discharge, did not qualify for supplemental O2. Overnight he had a Tmax of 99.8 Fahrenheit. I had started him on ceftriaxone. Chest x-ray showed right atelectasis concerned about interval development of pneumonia where there is atelectasis and lung infarct. (2) Opacity of lung on imaging study: Possibly atelectasis or scarring. Please refer for follow-up. Recommended reassessment imaging in 1 year. (3) Mediastinal lymphadenopathy: Please refer for follow-up. Recommended reassessment imaging in 1 year. Plan CAD PAD DM2: Continue long and short acting insulin, requesting Accu-Cheks and add sliding scale. CC diet. CKD: Appears stable MENA: We will request nightly NIPPV Attestations Medical Necessity Statement*: Change IV heparin to p.o. Eliquis today, change IV to oral antibiotics, optimize pain control, anticipate discharge in the upcoming 24 hours. If does well with the above changes. Coding Level of Care Code Acute Code for Chg Fwd Diagnoses Pulmonary embolism I26.99 Opacity of lung on imaging study R91.8 Mediastinal lymphadenopathy R59.0
[2022-12-17] MEDS: metoprolol succinate ER (24 HR) 50 mg Tablet PO (17:39)
[2022-12-17] MEDS: amoxicillin-clav 875-125 mg Tablet 1 TAB PO (17:43)
[2022-12-17] MEDS: fentaNYL 50 mcg Patch 1 PATCH TRANSDERMA (17:43)
[2022-12-17] MEDS: apixaban 5 mg Tablet PO (20:06)
[2022-12-17] MEDS: atorvastatin 40 mg Tablet PO (20:06)
[2022-12-17 20:17] LABS: Glucose Point of Care 166 mg/dL (70-110)
[2022-12-18] MEDS: HYDROcodone-acetaminophen 5-325 mg Tablet 1 TAB PO ×4 (03:22→15:18)
[2022-12-18 04:00] VITALS: BP 116/72; PULSE 63; RESP 17; TEMP 36.4; O2SAT 92
[2022-12-18 05:55] VITALS: PULSE 65
[2022-12-18 06:31] LABS: Glucose Point of Care 97 mg/dL (70-110)
[2022-12-18] MEDS: clopidogrel 75 mg Tablet PO (07:52)
[2022-12-18] MEDS: apixaban 5 mg Tablet PO ×2 (07:52→13:22)
[2022-12-18] MEDS: pantoprazole DR 40 mg Tablet PO (07:52)
[2022-12-18] MEDS: amoxicillin-clav 875-125 mg Tablet 1 TAB PO (07:52)
[2022-12-18] MEDS: lidocaine 5% Patch 1 PATCH TOPICAL (07:52)
[2022-12-18 08:00] VITALS: BP 112/71; PULSE 66; RESP 16; TEMP 36.8; O2SAT 91
[2022-12-18 12:00] VITALS: BP 124/77; PULSE 77; RESP 17; O2SAT 93
[2022-12-18 13:55] LABS: Glucose Point of Care 167 mg/dL (70-110)
[2022-12-18 14:00] VITALS: PULSE 105
--- NOTE | 2022-12-19 11:24 | PM.DCS ---
Discharge Providers Date of Admission: 12/17/22 16:54 Date of Discharge: December 18, 2022 Attending Provider at Admission: Raymond Knox Attending Provider at Discharge: Radha Shell MD Primary Care Provider: Ofe Coates MD Diagnoses at Discharge Discharge Diagnosis (1) Pulmonary embolism: Status: Acute (2) Opacity of lung on imaging study: Status: Acute (3) Mediastinal lymphadenopathy: Status: Acute Reason for Visit Reason for Visit: cp,fever Hospital Course Hospital Course 2-year-old gentleman with a history of cardiovascular disease, PAD, CKD, MENA, other comorbidities, presented with right lower chest pain episodes and spasms, especially with deep breaths or cough, has not been coughing very much.? No phlegm production.? No hemoptysis.? No lower extremity edema. CT scan showed bilateral PE, right greater than left. There were mild areas of bilateral mid to lower lung atelectasis or scarring. No consolidation. Lung volumes were low likely secondary to patient not taking a deep enough breath secondary to the pain. He denied any antecedent risk factors for development of PE. Lower extremity Doppler was negative. Patient was treated with lovenox and heparin drip during course of treatment and then transitioned to Eliquis at discharge. Instructed to take 10mg BID x 7 days then drop dose to 5 mg BID for 3 months. F/up with PCP. Hospital course notable for severe pleuritic pain in greg right chest for which needed fentanyl patch, prn iv dilaudid, flexeril and toradol for pain control. Pain regiman optimized at discharge for 7 days, thereafter to follow with PCP. Counselled that pain in likely related to lung infarction and expect improvement in next week. 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 Follow up with PCP arranged in a week. CXR showed low lung volumes and atelactasis. GIven spirometer at discharge. Also given Augmentin 875 mg BID due to t max 99.8. Suspect this is related to atelactasis however possibility of pneumonia in infarcting lung could not be excluded. He was able to wean off 02 prior to discharge based on home 02 eval Physical Exam Narrative: General: No acute distress, AO x3 HEENT: PERRLA, pupils bilaterally equal and reactive, pallors not present Chest: Normal vesicular breath sounds, no added sounds, equal good air entry bilaterally CVS: S1-S2 regular, no murmurs, no tachycardia, no gallops, no rubs Abdomen: Soft, nontender, no organomegaly, bowel sounds present Neuro: No focal deficits, no facial deformity, AO x3, power 5/5 in all limbs Discharge Data Studies Completed and Pending Completed Studies During Hospitalization Category Date Time Status CTA chest [CT angio chest PE protcl [id number]] Stat Cat Scan 12/15/22 00:44 Completed CXRP [XR chest 1V portable [id number]] Routine Exams 12/16/22 10:33 Completed XR chest 1V portable [id number] Stat Exams 12/14/22 23:21 Completed XR chest 1V portable [id number] Stat Exams 12/15/22 [place] [id number] Routine Ultrasound 12/15/22 14:12 Completed CV. echo limited [id number] Routine Ultrasound 12/15/22 04:16 [place] liver [id number] Routine Ultrasound 12/16/22 10:34 Completed Radiology Impressions Chest CTA 12/15/22 00:44 IMPRESSION: 1. At least mild burden ypkig-[id number]-qgep-left lower lobe PE. No CT evidence of RV strain. 2. Mild areas of bilateral mid to lower lung atelectasis or scarring. No consolidation noted. Lung volumes are quite low. 3. Other chronic findings above. Likely reactive bilateral hilar and mediastinal nodes. These, and the lung opacities, may be reassessed in 1 year. 4. Call to provider has been initiated. ADDENDUM: 12/15/22 0225 THIS REPORT CONTAINS FINDINGS THAT MAY BE CRITICAL TO PATIENT CARE. The findings were verbally communicated via telephone conference at 2:23 AM CDT on 12/15/2022 with NANNETTE EVANS. The findings were acknowledged and understood. Chest X-Ray 12/16/22 10:33 IMPRESSION: No acute finding. Chronic findings above. Liver Ultrasound 12/16/22 10:34 IMPRESSION: Possible gallbladder sludge without acute gallbladder wall change. Laboratory Results WBC 5.5 10^3/uL (4.0-10.0) 12/17/22 04:41 RBC 4.90 10^6/uL (4.1-5.3) 12/17/22 04:41 Hgb 14.0 g/dL (11.7-16.6) 12/17/22 04:41 Hct 44.8 % (42.0-52.0) 12/17/22 04:41 MCV 91.4 fl (80-94) 12/17/22 04:41 MCH 28.6 pg (28.0-34.0) 12/17/22 04:41 MCHC 31.3 g/dL (30.0-36.0) 12/17/22 04:41 RDW 14.3 % (12.1-15.1) 12/17/22 04:41 Plt Count 151 10^3/cmm (130-400) 12/17/22 04:41 MPV 10.5 fL (7.4-10.4) H 12/17/22 04:41 Neut % (Auto) 59.6 % 12/17/22 04:41 Lymph % (Auto) 24.1 % 12/17/22 04:41 Greenlee % (Auto) 13.2 % 12/17/22 04:41 Eos % (Auto) 2.0 % 12/17/22 04:41 Baso % (Auto) 0.7 % 12/17/22 04:41 Neut # (Auto) 3.28 10^3/uL (1.8-7.7) 12/17/22 04:41 Lymph # (Auto) 1.3 10^3/uL (0.8-4.8) 12/17/22 04:41 Greenlee # (Auto) 0.7 10^3/uL (0.2-0.9) 12/17/22 04:41 Eos # (Auto) 0.1 10^3/uL (0.0-0.8) 12/17/22 04:41 Baso # (Auto) 0.0 10^3/uL (0.0-0.1) 12/17/22 04:41 Nucleated RBC % (auto) 0 % 12/17/22 04:41 Nucleated RBCs # 0.0 /100WBC 12/17/22 04:41 PT 12.70 SECONDS (12.1-14.9) 12/14/22 23:48 INR 0.93 (0.8-1.2) 12/14/22 23:48 APTT Cancelled 12/17/22 18:20 D-Dimer 2.00 ug/mIFEU (0-0.59) H 12/14/22 23:48 Sodium 139 mmol/L (136-145) 12/17/22 04:41 Potassium 3.7 mmol/L (3.5-5.1) 12/17/22 04:41 Chloride 104 mmol/L (98-107) 12/17/22 04:41 Carbon Dioxide 25 mmol/L (22-29) 12/17/22 04:41 Anion Gap 13.7 (5-19) 12/17/22 04:41 BUN 21 mg/dL (8-23) 12/17/22 04:41 Creatinine 1.6 mg/dL (0.7-1.2) H 12/17/22 04:41 GFR Calculation Not Reportable 12/17/22 04:41 Glucose 78 mg/dL (65-115) 12/17/22 04:41 POC Glucose 167 mg/dL (70-110) H 12/18/22 11:13 Calculated Osmolality 290 mOsm/kg (285-295) 12/17/22 04:41 Calcium 9.3 mg/dL (8.5-10.5) 12/17/22 04:41 Total Bilirubin 0.7 mg/dL (0.15-1.2) 12/17/22 04:41 AST 18 U/L (0-40) 12/17/22 04:41 ALT 20 U/L (0-41) 12/17/22 04:41 Alkaline Phosphatase 56 U/L (40-130) 12/17/22 04:41 Troponin T Baseline 22 ng/L (0-15) H 12/14/22 23:48 Troponin T 120 Minute 17.95 ng/L (0-15) H 12/15/22 01:21 Delta Troponin T -4.05 ABS# (0-10) L 12/15/22 01:21 Troponin T Hi Sens 6Hr 20.08 ng/L (0-15) H 12/15/22 05:57 Troponin T Hi Sens 6Hr Delta -1.92 ng/L (0-12) L 12/15/22 05:57 Total Protein 7.3 g/dL (6.6-8.7) 12/17/22 04:41 Albumin 3.7 g/dL (3.5-5.2) 12/17/22 04:41 Globulin 3.6 g/dL (1.3-4.6) 12/17/22 04:41 Lipase 33 U/L (13-60) 12/14/22 23:48 Vitals Last Vital Signs Temp 98.2 F 12/18/22 08:00 Pulse 105 H 12/18/22 14:00 Resp 17 12/18/22 12:00 BP 124/77 12/18/22 12:00 Pulse Ox 93 12/18/22 12:00 O2 Del Method 12/17/22 10:00 O2 Flow Rate 2 12/18/22 08:00 Discharge Plan Discharge Patient Disposition: Home Condition: Stable Prescriptions: New amoxicillin-pot clavulanate 875-125 mg Tablet 1 tab PO BID 7 Days Qty: 14 0RF cyclobenzaprine 10 mg Tablet 5 mg PO TID PRN (Reason: Muscle Spasms) 7 Days Qty: 21 0RF fentanyl 50 mcg/hr Patch 72 Hour 1 patch transdermal Q72H 7 Days Qty: 2 0RF hydrocodone-acetaminophen 5-325 mg Tablet 1 tab PO Q6H PRN (Reason: pin) 7 Days Qty: 28 0RF lidocaine 5 % Adhesive Patch,Medicated 1 patch topical [id number] Qty: 0 0RF Eliquis 5 mg tablet 5 mg PO BID 90 Days Qty: 180 0RF Rx Instructions: take 10mg po twice daily for 6 days, then reduce dose to 5mg BID for 3 months Continued triamcinolone acetonide 55 mcg aerosol,spray 2 spray INTRANASAL DAILY omega-3 fatty acids [Fish Oil Concentrate] 1,000 mg capsule 1,000 mg PO DAILY (DME) lancets [Easy Touch Safety Lancets] 28 gauge misc See Rx Instructions .ROUTE .MEDSUPPLY Qty: 25 Rx Instructions: As directed bid and prn cholecalciferol (vitamin D3) 50 mcg (2,000 unit) capsule 50 mcg PO DAILY Neutrogena T/Meño 3 % shampoo 1 applic topical .3 times a week Qty: 133 2RF Tresiba FlexTouch U-200 200 unit/mL (3 mL) insulin pen See Rx Instructions .ROUTE .COMPLEX Qty: 18 1RF Dose Instruction: inject 78 units SUBCUTANEOUSLY ONCE daily Rx Instructions: inject 80 units SUBCUTANEOUSLY ONCE daily Jardiance 25 mg tablet 25 mg PO DAILY Qty: 30 3RF clopidogrel 75 mg tablet 75 mg PO DAILY Qty: 90 1RF metoprolol succinate 50 mg tablet extended release 24 hr 50 mg PO DAILY Qty: 90 1RF pantoprazole 40 mg tablet,delayed release (DR/EC) 40 mg PO DAILY Qty: 90 1RF nitroglycerin 0.4 mg tablet, sublingual See Rx Instructions .ROUTE .COMPLEX Qty: 30 0RF Dose Instruction: DISSOLVE ONE TABLET UNDER THE TONGUE q5m NEEDED FOR CHEST pain Rx Instructions: DISSOLVE ONE TABLET UNDER THE TONGUE q5m NEEDED FOR CHEST pain atorvastatin 40 mg tablet 40 mg PO BEDTIME fexofenadine 180 mg Tablet 180 mg PO DAILY Novolog U-100 Insulin aspart 100 unit/mL Solution 13 unit SUBCUT TIDWMEAL Nufola 25 mg-3,500 mcg DFE-1 mg-300 mg Capsule 1 cap PO DAILY Discontinued aspirin 81 mg tablet,delayed release (DR/EC) 81 mg PO DAILY Discharge Orders: Discharge Order (Routine); Ordered 12/18/22 Ordered By: Radha Shell Referrals: Datar,Leonel Ledezma MD [Physician] - 2 weeks (follow up PE) Ofe Coates MD [Primary Care Provider] - 12/26/22 10:40 am Discharge Diet: Usual diet Discharge Activity: Resume usual activity Patient Instructions: Hydrocodone/Acetaminophen (By mouth), Cyclobenzaprine (By mouth) (Flexeril, Amrix, Fexmid, FusePaq Tabradol), Amoxicillin/Clavulanate Potassium (By mouth), Fentanyl (Absorbed through the skin), Lidocaine Patch (On the skin), Apixaban (By mouth) (Eliquis), Pulmonary Embolism (DC), Opioid Safety Discharge Attestations Time Spent in Discharge Care*: greater than 30 min Quality Metrics Clinical Quality Measures [ Venous Thromboembolism { Contraindication to Overlap Therapy: None; Overlap threrpy ordered; VTE Discharge Education: Education about anticoagulant therapy/Care Notes given;}] Coding Level of Care Code Acute Code for Chg Fwd Diagnoses Pulmonary embolism I26.99 Opacity of lung on imaging study R91.8 Mediastinal lymphadenopathy R59.0
== END 2022-12-18 15:30 | disposition home or self-care (01) | DRG 176 ==
LOC: ER 12-15 02:27 → MEDSURG 12-15 02:52
PROVIDERS: Admitting Provider Internal Medicine; Emergency Provider Emergency Medicine; PCP Family Medicine; Visit Provider Student in an Organized Health Care Education/Training Program
DX: I26.99 Other pulmonary embolism without acute cor pulmonale (principal); J98.11 Atelectasis; R59.0 Localized enlarged lymph nodes; E11.22 Type 2 diabetes mellitus with diabetic chronic kidney disease; N18.30 Chronic kidney disease, stage 3 unspecified; E11.51 Type 2 diabetes mellitus with diabetic peripheral angiopathy without gangrene; I25.10 Atherosclerotic heart disease of native coronary artery without angina pectoris; G47.33 Obstructive sleep apnea (adult) (pediatric); R91.8 Other nonspecific abnormal finding of lung field; Z87.891 Personal history of nicotine dependence; Z79.4 Long term (current) use of insulin
CPT/HCPCS: 36415; 36416; 71045; 71275; 76705; 80048; 80053; 82962; 83690; 84484; 85025; 85378; 85610; 85730; 93005; 93308; 93970; 94760; 96372; 99285; G0378; J0131; J0696; J1170; J1644; J1650; J1885; J2270; J2405; Q9967

== ENCOUNTER → 2023-01-11 15:07 | Outpatient (BNVA) | payer MEDICARE, OTHER, SELFPAY | PROVIDERS: PCP Family Medicine; Visit Provider Internal Medicine | DX: I12.9 Hypertensive chronic kidney disease with stage 1 through stage 4 chronic kidney disease, or unspecified chronic kidney disease (principal); E78.2 Mixed hyperlipidemia; E13.22 Other specified diabetes mellitus with diabetic chronic kidney disease; N18.30 Chronic kidney disease, stage 3 unspecified; G47.33 Obstructive sleep apnea (adult) (pediatric); I25.10 Atherosclerotic heart disease of native coronary artery without angina pectoris; Z79.01 Long term (current) use of anticoagulants; Z87.891 Personal history of nicotine dependence; Z79.4 Long term (current) use of insulin | CPT/HCPCS: 99214 ==

== ENCOUNTER → 2023-01-23 09:36 | Outpatient (BNVA) | payer MEDICARE, OTHER, SELFPAY | PROVIDERS: PCP Family Medicine; Visit Provider Family Medicine | DX: E11.65 Type 2 diabetes mellitus with hyperglycemia (principal); I10 Essential (primary) hypertension; I25.10 Atherosclerotic heart disease of native coronary artery without angina pectoris | CPT/HCPCS: 80053; 80061; 83036; 85025 ==

== ENCOUNTER → 2023-06-15 11:42 | Outpatient (BNVA) | payer MEDICARE, OTHER, SELFPAY | PROVIDERS: PCP Family Medicine; Visit Provider Family Medicine | DX: E13.9 Other specified diabetes mellitus without complications (principal); E78.5 Hyperlipidemia, unspecified; I10 Essential (primary) hypertension; E11.65 Type 2 diabetes mellitus with hyperglycemia; I25.10 Atherosclerotic heart disease of native coronary artery without angina pectoris | CPT/HCPCS: 80053; 80061; 83036; 85025 ==

== ENCOUNTER → 2023-07-14 09:05 | Outpatient (BNVA) | payer MEDICARE, OTHER, SELFPAY | PROVIDERS: PCP Family Medicine; Visit Provider Internal Medicine | DX: I12.9 Hypertensive chronic kidney disease with stage 1 through stage 4 chronic kidney disease, or unspecified chronic kidney disease (principal); E13.22 Other specified diabetes mellitus with diabetic chronic kidney disease; N18.30 Chronic kidney disease, stage 3 unspecified; Z87.891 Personal history of nicotine dependence; Z79.4 Long term (current) use of insulin; E78.2 Mixed hyperlipidemia; G47.33 Obstructive sleep apnea (adult) (pediatric); I25.10 Atherosclerotic heart disease of native coronary artery without angina pectoris | CPT/HCPCS: 99214 ==

== ENCOUNTER → 2023-09-08 12:01 | Outpatient (BNVA) | payer MEDICARE, OTHER, SELFPAY | PROVIDERS: PCP Family Medicine; Visit Provider Family Medicine | DX: E11.65 Type 2 diabetes mellitus with hyperglycemia (principal); H60.90 Unspecified otitis externa, unspecified ear; I10 Essential (primary) hypertension | CPT/HCPCS: 82043; 83036; 85025 ==

== ENCOUNTER → 2023-09-13 09:15 | Outpatient (BNVA) | payer MEDICARE, OTHER, SELFPAY | PROVIDERS: PCP Family Medicine; Visit Provider Family Medicine | DX: I25.10 Atherosclerotic heart disease of native coronary artery without angina pectoris (principal); E78.5 Hyperlipidemia, unspecified; E11.65 Type 2 diabetes mellitus with hyperglycemia; E13.9 Other specified diabetes mellitus without complications | CPT/HCPCS: 80053; 80061 ==

== ENCOUNTER 2023-12-06 13:28 | Outpatient (CLI) | payer MEDICARE, OTHER, SELFPAY ==
--- NOTE | 2023-12-06 13:45 | US_ITS ---
WS: [id number] US pelvic limited [id number] HISTORY: R10.31 - Right lower quadrant pain, male patient. COMPARISON: None available. Ultrasound directed to the RIGHT lower quadrant in the area of pain. There is abnormality identified. Normal appearance of the iliac artery. No soft tissue mass identified within the pelvis. Peristalsin g loops of GI tract are identified. The visualized bladder is normal. IMPRESSION: Negative ultrasound of the pelvis. No abnormality noted in the RIGHT lower quadrant in the area of pa in as directed by the patient.
--- NOTE | 2023-12-06 14:30 | US_ITS ---
WS: [id number] SCROTAL ULTRASOUND EXAMINATION CLINICAL INFORMATION: N50.811 - Right testicular pain COMPARISON: None. FINDINGS: TESTES RIGHT testicle smaller compared to the LEFT. Otherwise normal echotexture without focal lesion. Color Doppler: Normal color Doppler flow pattern. Right testes size: 2.3 cm x 2.0 cm x 1.1 cm. Left testes size: 3.0 cm x 2.6 cm x 1.7 cm. EPIDIDYMIDES Patient reports RIGHT epididymis previously removed. LEFT epididymis in size and echotexture, without focal lesion. Color Doppler: Normal color Doppler flow pattern. Right epididymis size: Previously removed Left epididymis size: 0.4 cm x 0.4 cm x 0.8 cm. HYDROCELE None. VARICOCELE Small LEFT varicocele. OTHER FINDINGS None. IMPRESSION: 1. Testicles are normal in echogenicity with normal vascularity. RIGHT testicle smaller than the LEF T. 2. Patient reports prior resection of the RIGHT epididymis. 3. Small LEFT varicocele.
== END 2023-12-06 13:29 | disposition home or self-care (01) ==
LOC: RAD 13:28
PROVIDERS: PCP Family Medicine; Visit Provider Family Medicine
DX: N50.811 Right testicular pain (principal); R10.31 Right lower quadrant pain; N45.1 Epididymitis; I86.1 Scrotal varices
CPT/HCPCS: 76857; 76870

== ENCOUNTER → 2023-12-18 09:09 | Outpatient (BNVA) | payer MEDICARE, OTHER, SELFPAY | PROVIDERS: PCP Family Medicine; Visit Provider Family Medicine | DX: R30.0 Dysuria (principal); E13.9 Other specified diabetes mellitus without complications; I10 Essential (primary) hypertension; E78.2 Mixed hyperlipidemia; Z12.5 Encounter for screening for malignant neoplasm of prostate | CPT/HCPCS: 80053; 80061; 81003; 82043; 83036; 85025; G0103 ==

== ENCOUNTER → 2024-02-02 09:07 | Outpatient (BNVA) | payer MEDICARE, OTHER, SELFPAY | PROVIDERS: PCP Family Medicine; Visit Provider Nurse Practitioner Family | DX: I25.10 Atherosclerotic heart disease of native coronary artery without angina pectoris (principal); I12.9 Hypertensive chronic kidney disease with stage 1 through stage 4 chronic kidney disease, or unspecified chronic kidney disease; E13.22 Other specified diabetes mellitus with diabetic chronic kidney disease; N18.30 Chronic kidney disease, stage 3 unspecified; Z87.891 Personal history of nicotine dependence; Z79.4 Long term (current) use of insulin | CPT/HCPCS: 99214 ==

== ENCOUNTER 2024-03-04 10:48 | Outpatient (CLI) | payer MEDICARE, OTHER, SELFPAY ==
--- NOTE | 2024-03-04 10:55 | MR_ITS ---
WS: [id number] MRI ORBITS WITH AND WITHOUT CONTRAST. COMPARISON: None Multiplanar, multisequence imaging is performed with and without contrast. MultiHance 20 mL. History: Vision problems left eye. History of barbed wire being removed from his orbit 8 years ago. Markedly abnormal appearance of the LEFT globe. The LEFT globe is shrunken and abnormal signal. There is increased signal in the vitreous on the FLAIR and T1 sequences. The sclera is thickened, overlapp ing and undulating. Small caliber globe with enophthalmos. The separate chambers are difficult to harry ntify. The globe is shrunken and retracted. The optic nerve is a very slight increased signal as comp ared to the RIGHT optic nerve. Lateral extraocular muscle is smaller caliber. There is no fluid colle ction. No mass. On the postcontrast imaging there is enhancement of the sclera with undulation. There is no discrete mass. No abscess. Normal diffusion imaging. Mild cerebral atrophy. No prior infarct. Minimal small vessel disease. No i nferior displacement of cerebellar tonsils. Visualized pituitary gland and sella turcica are negative . Ventricles are normal size. No mass at the cerebellopontine angles. Mild RIGHT frontal sinus disease extending into the frontoethmoid recess. MR/MR orbit face neck wo/w* [id number] IMPRESSION: 1. Abnormal LEFT globe. 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 No mass. 2. Very slight atrophy lateral LEFT rectus muscle. The LEFT optic nerve also a ppears just very slightly smaller and with increased signal compared to the RIG HT.
[2024-03-04] MEDS: gadobenate dimeglumine 20 mL vial IV (11:38)
== END 2024-03-04 10:49 | disposition home or self-care (01) ==
LOC: RAD 10:48
PROVIDERS: PCP Family Medicine; Visit Provider Student in an Organized Health Care Education/Training Program
DX: H53.9 Unspecified visual disturbance (principal); H44.9 Unspecified disorder of globe
CPT/HCPCS: 70543; A9577

== ENCOUNTER → 2024-04-01 12:06 | Outpatient (BNVA) | payer MEDICARE, OTHER, SELFPAY | PROVIDERS: PCP Family Medicine; Visit Provider Family Medicine | DX: E11.65 Type 2 diabetes mellitus with hyperglycemia (principal); R97.20 Elevated prostate specific antigen [PSA]; Z79.899 Other long term (current) drug therapy | CPT/HCPCS: 80053; 80061; 82306; 83036; 84153; 85025 ==

== ENCOUNTER → 2024-08-08 11:57 | Outpatient (BNVA) | payer MEDICARE, OTHER, SELFPAY | PROVIDERS: PCP Family Medicine; Visit Provider Family Medicine | DX: R41.3 Other amnesia (principal); E11.65 Type 2 diabetes mellitus with hyperglycemia; Z79.899 Other long term (current) drug therapy | CPT/HCPCS: 80053; 82607; 83036; 84443; 85025; 86592 ==

== ENCOUNTER 2024-08-23 10:38 | Outpatient (CLI) | payer MEDICARE, OTHER, SELFPAY ==
--- NOTE | 2024-08-23 11:00 | MR_ITS ---
WS: [id number] MRI BRAIN WITHOUT CONTRAST HISTORY: cognitive decline COMPARISON: None available. TECHNIQUE: Diffusion imaging, multiplanar T1, T2 and FLAIR imaging obtained. No evidence for acute infarct or hemorrhage. Morris-white matter differentiation is normal. Mild bilateral symmetric atrophy. There is minimal small vessel disease. No prior infarct. No signifi cant hippocampal atrophy. Ventricles and extra-axial spaces are normal. No inferior displacement of cerebellar tonsils. The sella turcica and pituitary gland are unremarkabl e. Dural venous sinuses and [place] demonstrate no abnormality on this unenhanced studies. Paranasal sinuses: Small mucous retention cyst in the RIGHT maxillary sinus. Mastoid air cells: Normal. Calvarium and scalp: Intact. Chronic rupture LEFT globe. MR/MR head wo con* [id number] IMPRESSION: 1. No acute infarct or hemorrhage. 2. Mild bilateral symmetric atrophy with minimal small vessel disease. 3. Normal hippocampal formations.
== END 2024-08-23 10:39 | disposition home or self-care (01) ==
LOC: RAD 10:39
PROVIDERS: PCP Family Medicine; Visit Provider Family Medicine
DX: R41.3 Other amnesia (principal)
CPT/HCPCS: 70551

== ENCOUNTER → 2024-08-26 09:59 | Outpatient (BNVA) | payer MEDICARE, OTHER, SELFPAY | PROVIDERS: PCP Family Medicine; Visit Provider Internal Medicine | DX: I12.9 Hypertensive chronic kidney disease with stage 1 through stage 4 chronic kidney disease, or unspecified chronic kidney disease (principal); E13.22 Other specified diabetes mellitus with diabetic chronic kidney disease; N18.30 Chronic kidney disease, stage 3 unspecified; Z79.4 Long term (current) use of insulin; E78.2 Mixed hyperlipidemia; G47.33 Obstructive sleep apnea (adult) (pediatric); I25.10 Atherosclerotic heart disease of native coronary artery without angina pectoris | CPT/HCPCS: 99213 ==

== ENCOUNTER → 2024-09-13 09:12 | Outpatient (BNVA) | payer MEDICARE, OTHER, SELFPAY | PROVIDERS: PCP Family Medicine; Visit Provider Nurse Practitioner Family | DX: R19.7 Diarrhea, unspecified (principal) | CPT/HCPCS: 87045; 87427; 87449; 87493 ==

== ENCOUNTER → 2024-09-26 12:33 | Outpatient (BNVA) | payer MEDICARE, OTHER, SELFPAY | PROVIDERS: PCP Family Medicine; Referring Provider Family Medicine; Visit Provider Specialist | DX: R29.898 Other symptoms and signs involving the musculoskeletal system; G56.01 Carpal tunnel syndrome, right upper limb; G56.21 Lesion of ulnar nerve, right upper limb; M25.521 Pain in right elbow | CPT/HCPCS: 95911 ==

== ENCOUNTER → 2025-01-27 08:36 | Outpatient (BNVA) | payer MEDICARE, OTHER, SELFPAY | PROVIDERS: PCP Family Medicine; Visit Provider Family Medicine | DX: I10 Essential (primary) hypertension (principal); E78.2 Mixed hyperlipidemia; E11.9 Type 2 diabetes mellitus without complications; Z79.4 Long term (current) use of insulin; I25.10 Atherosclerotic heart disease of native coronary artery without angina pectoris; Z12.5 Encounter for screening for malignant neoplasm of prostate | CPT/HCPCS: 80053; 80061; 83036; G0103 ==

== ENCOUNTER → 2025-03-03 14:42 | Outpatient (BNVA) | payer MEDICARE, OTHER, SELFPAY | PROVIDERS: PCP Family Medicine; Visit Provider Internal Medicine | DX: I13.0 Hypertensive heart and chronic kidney disease with heart failure and stage 1 through stage 4 chronic kidney disease, or unspecified chronic kidney disease (principal); N18.2 Chronic kidney disease, stage 2 (mild); I50.32 Chronic diastolic (congestive) heart failure; I25.10 Atherosclerotic heart disease of native coronary artery without angina pectoris; E78.5 Hyperlipidemia, unspecified; R00.1 Bradycardia, unspecified; Z79.02 Long term (current) use of antithrombotics/antiplatelets; Z79.82 Long term (current) use of aspirin; Z95.1 Presence of aortocoronary bypass graft; Z95.5 Presence of coronary angioplasty implant and graft; Z86.711 Personal history of pulmonary embolism; Z86.718 Personal history of other venous thrombosis and embolism | CPT/HCPCS: 99214 ==

== ENCOUNTER → 2025-04-29 09:03 | Outpatient (BNVA) | payer MEDICARE, OTHER, SELFPAY | PROVIDERS: PCP Family Medicine; Visit Provider Nurse Practitioner Family | DX: R97.20 Elevated prostate specific antigen [PSA] (principal); E11.9 Type 2 diabetes mellitus without complications; Z79.4 Long term (current) use of insulin | CPT/HCPCS: 80048; 83036; 84153 ==

== ENCOUNTER → 2025-05-01 10:49 | Outpatient (BNVA) | payer MEDICARE, OTHER, SELFPAY | PROVIDERS: PCP Family Medicine; Visit Provider Family Medicine | DX: R30.0 Dysuria (principal) | CPT/HCPCS: 81000 ==

== ENCOUNTER 2025-05-29 07:17 | Outpatient (CLI) | payer MEDICARE, OTHER, SELFPAY ==
--- NOTE | 2025-05-29 07:45 | USCV_ITS ---
Binu Mccoy Age: 74 Gender: M : 1950 Exam Date: 05/29/2025 07:33 Ordering Phys: Emily Rodriguez MD Technologist: ALEXIS Exam Location: [facility] – [place] Indication: Dyspnea BP: 128 / 60 HR: 61 Rhythm: Sinus Technical Quality: Adequate MEASUREMENTS (Male / Female) Normal Values 2D ECHO LV Diastolic Diameter PLAX 5.0 cm 4.2 - 5.9 / 3.9 - 5.3 cm IVS Diastolic Thickness 1.0 cm 0.6 - 1.0 / 0.6 - 0.9 cm IVS Systolic Thickness 1.5 cm LVPW Diastolic Thickness 1.2 cm 0.6 - 1.0 / 0.6 - 0.9 cm LVPW Systolic Thickness 1.3 cm LVOT Diameter 2.1 cm LV Ejection Fraction 2D Teich 64.2 % LV Ejection Fraction MOD 4C 64.3 % LV Ejection Fraction MOD 2C 71.9 % LV Ejection Fraction 2C AL 73.0 % LA Diameter 3.6 cm RA Systolic Volume 4C AL 40.6 ml RA Systolic Volume 4C MOD 39.9 ml LA Sys Volume AL 70.9 cm cubed LA Sys Volume Index AL 34.2 cm cubed/m squared Aorta at Sinotubular Diameter 2.8 cm IVC Diameter 1.6 cm M-MODE LA Ao Ratio MM 1.4 AV Cusp Separation MM 1.6 cm DOPPLER AV Peak Velocity 188.0 cm/s LVOT Peak Velocity 104.0 cm/s AV Area Cont Eq vti 2.5 cm squared AV Area Cont Eq pk 2.0 cm squared MV Peak Velocity 79.0 cm/s MV Area PHT 3.7 cm squared Mitral E to A Ratio 0.7 TR Peak Velocity 91.0 cm/s TR Peak Gradient 3.3 mmHg TV Peak E Velocity 75.0 cm/s PV Peak Velocity 136.0 cm/s FINDINGS Left Ventricle Normal left ventricular size and systolic function, EF 64%. Mild left ventricular hypertrophy. No regional wall motion abnormalities. Right Ventricle Normal right ventricular size and systolic function. Right Atrium The right atrium is normal in size. Left Atrium The left atrium is normal in size. Mitral Valve Trace mitral valve regurgitation. Aortic Valve Thickened aortic valve. Tricuspid Valve No gross abnormalities Pulmonic Valve No gross abnormalities noted Pericardium Normal pericardium without effusion. Aorta Normal ascending aorta dimension. IVC Normal inferior vena cava. CONCLUSIONS Normal left ventricular size and systolic function, EF 64%. Mild left ventricular hypertrophy. No regional wall motion abnormalities. Normal right ventricular size and systolic function. Trace mitral valve regurgitation. Thickened aortic valve. There is no pericardial effusion. There are no intracardiac masses. Compared to the previous study from 12/15/2022, there may not be significant change. Dr Dorita Purcell MD FACC (Electronically Signed) Final Date: 01 June 2025 19:57 S
== END 2025-05-29 07:18 | disposition home or self-care (01) ==
LOC: RAD 07:17
PROVIDERS: PCP Family Medicine; Visit Provider Family Medicine
DX: R06.09 Other forms of dyspnea (principal); I51.7 Cardiomegaly; I35.8 Other nonrheumatic aortic valve disorders; I34.0 Nonrheumatic mitral (valve) insufficiency
CPT/HCPCS: 93306

== ENCOUNTER → 2025-08-04 08:40 | Outpatient (BNVA) | payer MEDICARE, OTHER, SELFPAY | PROVIDERS: PCP Family Medicine; Visit Provider Family Medicine | DX: I10 Essential (primary) hypertension (principal); I25.10 Atherosclerotic heart disease of native coronary artery without angina pectoris; E78.2 Mixed hyperlipidemia; E11.9 Type 2 diabetes mellitus without complications; Z79.4 Long term (current) use of insulin; Z01.818 Encounter for other preprocedural examination | CPT/HCPCS: 80053; 80061; 81003; 83036; 85025 ==

== ENCOUNTER → 2025-08-12 12:23 | Outpatient (BNVA) | payer MEDICARE, OTHER, SELFPAY | PROVIDERS: PCP Family Medicine; Visit Provider Family Medicine | DX: N18.30 Chronic kidney disease, stage 3 unspecified (principal); E11.22 Type 2 diabetes mellitus with diabetic chronic kidney disease; I12.9 Hypertensive chronic kidney disease with stage 1 through stage 4 chronic kidney disease, or unspecified chronic kidney disease; I13.0 Hypertensive heart and chronic kidney disease with heart failure and stage 1 through stage 4 chronic kidney disease, or unspecified chronic kidney disease; I50.9 Heart failure, unspecified; Z79.84 Long term (current) use of oral hypoglycemic drugs; Z79.02 Long term (current) use of antithrombotics/antiplatelets; Z79.01 Long term (current) use of anticoagulants; Z79.52 Long term (current) use of systemic steroids | CPT/HCPCS: 82043 ==

== ENCOUNTER → 2025-09-02 14:48 | Outpatient (BNVA) | payer MEDICARE, OTHER, SELFPAY | PROVIDERS: PCP Family Medicine; Visit Provider Internal Medicine | DX: I25.10 Atherosclerotic heart disease of native coronary artery without angina pectoris (principal); I10 Essential (primary) hypertension; E78.5 Hyperlipidemia, unspecified; Z87.891 Personal history of nicotine dependence; Z79.01 Long term (current) use of anticoagulants | CPT/HCPCS: 99214 ==